=== PATIENT | male | born 1960 ===

== ENCOUNTER 2022-11-08 16:00 | Outpatient (CLI) | payer OTHER | END 2022-11-08 16:10 | disposition home or self-care (01) | LOC: PPH VACUNA 16:00 | PROVIDERS: ATTEND Emergency Medicine Pediatric Emergency Medicine | DX: Z23 Encounter for immunization (principal) ==

== ENCOUNTER → 2023-12-05 12:49 | Outpatient (CLI) | payer OTHER | END | disposition home or self-care (01) | LOC: EKG 12:49 | PROVIDERS: ATTEND Ophthalmology | DX: I10 Essential (primary) hypertension (principal); I11.9 Hypertensive heart disease without heart failure; Z98.41 Cataract extraction status, right eye; H25.011 Cortical age-related cataract, right eye ==